=== PATIENT | male | born 1990 | race Caucasian/White ===

== ENCOUNTER 2017-08-21 19:04 | Emergency (ER) | payer BC ==
--- NOTE | 2017-08-21 21:25 | ULT ---
LEFT LOWER EXTREMITY VENOUS DUPLEX ULTRASOUND INCLUDING COLOR AND SPECTRAL DOPPLER IMAGING: HISTORY: A 26-year-old male with left lower extremity pain and edema and redness for two days. TECHNIQUE: Exam performed from the groin to the ankle, including the visualized greater saphenous, common femora l, superficial femoral, profunda femoral, popliteal, trifurcation, and posterior tibial vein regions. FINDINGS: There is phasic flow at all levels with normal compressibility and normal augmentation. No intralumi nal thrombus. IMPRESSION: No evidence for deep venous thrombosis. POS: [facility]
[2017-08-21] MEDS ORDERED: Cephalexin 500 MG CAP ONE (21:39)
== END 2017-08-21 21:48 | disposition home or self-care (01) ==
LOC: SCSER 19:04
DX: L03.116 Cellulitis of left lower limb (principal)

== ENCOUNTER 2017-08-22 13:45 | Outpatient (CLI) | payer OTHER ==
[~2017-08-22 13:45] MED LIST: Gadobenate Dimeglumine 529 MG/1 ML (20ML VIAL) ONE
--- NOTE | 2017-08-22 15:43 | MRI ---
BRAIN MRI WITH AND WITHOUT CONTRAST: HISTORY: Concussion syndrome. Hit head during skiing accident. Headache. Frontal pressure. COMPARISON: None. TECHNIQUE: A brain MRI is performed without intravenous Gadolinium administration. Multisequential, multiplanar imaging is performed. FINDINGS: No hemorrhage on the axial gradient echo sequence. No parenchymal mass, mass effect, or midline shift. Brain volume is age appropriate. Cortical guerin white matter differentiation is preserved. The ventricles and sulci are patent and symmetric. No significant T2 or FLAIR white matter hyperintensities. The central arterial flow voids are maintained. Absent restricted diffusion. Adequate aeration of the sinuses and mastoid air cells. The calvarium has a normal T1 marrow signal intensity. Midline brain parenchymal structures are unre markable. No pathologic enhancement of the brain parenchyma. IMPRESSION: 1. No intracranial post traumatic sequelae. 2. No restricted diffusion. No acute infarct. 3. No evidence of hemorrhage on the axial gradient sequence. 4. No pathologic enhancement of the brain parenchyma. POS: [facility]
== END 2017-08-22 13:46 | disposition home or self-care (01) ==
LOC: MRI 13:45
PROVIDERS: ATTEND Specialist
DX: F07.81 Postconcussional syndrome (principal)
CPT/HCPCS: 70553; A9579

== ENCOUNTER 2018-05-02 09:22 | Outpatient (CLI) | payer BC ==
--- NOTE | 2018-05-02 11:00 | CT ---
CT OF LEFT WRIST PERFORMED WITHOUT CONTRAST ENHANCEMENT: History: Patient has bilateral wrist injury with scaphoid fracture. Evaluation for arthritis. FINDINGS: There are post-operative changes of the left wrist. There has been screw placement related to fixatio n of the scaphoid fracture. The fracture line is difficult to visualize but it was probably through t he waist region of the scaphoid. The proximal end of the screw is seen along the more volar side of t he scapholunate joint. There are some osteophytic changes involving the volar lip of the radius in th is region. There is post-surgical donor side of the distal radius seen. There are minimal arthritic c hanges of the triscaphe joint. Carpal bone alignment appears fairly normal. IMPRESSION: Post-operative changes of the scaphoid with screw placement. The fracture appears fairly well healed. The proximal end of the screw is near the more volar side of the scapholunate joint and is associate d with some osteophytic changes along the volar lip of the distal radius in this region. There is jessica e joint space narrowing on the volar side of the radiocarpal joint space in this area. POS: [facility]
--- NOTE | 2018-05-02 11:43 | CT ---
CT OF RIGHT WRIST PERFORMED WITHOUT CONTRAST ENHANCEMENT: History: Injury to wrist with history of previous surgery. Comparison: None. FINDINGS: There are post-operative changes of the right wrist. There has been screw placement across the fractu re of the waist of the scaphoid. 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 The screw does not significantl y engage the larger proximal pole fragment which more along the volar side. The dorsal side has sever al smaller bony fragments. There is some cystic change within the larger volar fragment and the bone is somewhat sclerotic although not grossly collapsed. There is some minimal osteophytic change of the distal radius, more along the volar lip. The remainder of the joint space all appear fairly well pre served. Some minimal arthritic changes of the triscaphe joint are seen. Graft donor site of the dista l radius is noted. 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 The scr ew actually does not significant engage any portion of the proximal pole of the scaphoid which is fra gmented. There are several small dorsal fragments and a larger volar sided fragment which also shows sclerosis. There is osteophytic changes of the volar lip of the distal radius. Also some osteophytic change along the dorsal lip and which is devolping an articulation with the dorsal side of the lunate . POS: [facility]
== END 2018-05-02 09:23 | disposition home or self-care (01) ==
LOC: SCSCT 09:22
PROVIDERS: ATTEND Orthopaedic Surgery Hand Surgery
DX: S62.002S Unspecified fracture of navicular [scaphoid] bone of left wrist, sequela (principal); M19.132 Post-traumatic osteoarthritis, left wrist; Z98.890 Other specified postprocedural states

== ENCOUNTER 2018-06-02 15:37 | Outpatient (CLI) | payer BC ==
--- NOTE | 2018-06-02 16:45 | MRI ---
MRI OF THE RIGHT KNEE 06/02/18 PROVIDED CLINICAL HISTORY: Right knee pain. FINDINGS: The anterior cruciate ligament, posterior cruciate ligament, medial collateral ligament and lateral c ollateral ligamentous complex demonstrate an intact MR appearance, as does the extensor mechanism. There is a diminutive appearance to the body and posterior horn of the lateral meniscus suggesting pr ior partial meniscectomy. There is grade III signal involving the posterior horn of the lateral menis cus as it approaches the meniscal root. There is a somewhat truncated appearance to the anterior horn /body junction at its free edge. The medial meniscus demonstrates no evidence for tear. No focal articular cartilage defect is apparent. The amount of fluid within the knee joint appears ph ysiologic. No focal concerning regional marrow or muscular signal abnormality is evident. IMPRESSION: 1. Presumed postoperative appearance to the lateral meniscus. 2. Otherwise unremarkable MRI of the right knee. POS: [facility]
== END 2018-06-02 15:38 | disposition home or self-care (01) ==
LOC: SCSMRI 15:37
PROVIDERS: ATTEND Pediatrics Sports Medicine
DX: S83.206A Unspecified tear of unspecified meniscus, current injury, right knee, initial encounter (principal); M25.561 Pain in right knee; Z98.890 Other specified postprocedural states